=== PATIENT | female | born 1955 | race Caucasian/White ===

== ENCOUNTER → 2016-08-07 | Outpatient (CLI) | payer BC | END | disposition disaster alternative care site (69) | LOC: GBCOE 07-27 14:00 | DX: Z12.31 Encounter for screening mammogram for malignant neoplasm of breast (principal) | CPT/HCPCS: G0202 ==

== ENCOUNTER → 2016-08-20 | Outpatient (CLI) | payer BC | END | disposition disaster alternative care site (69) | LOC: GNUT 08:58 | DX: E11.9 Type 2 diabetes mellitus without complications (principal) ==